=== PATIENT | male | born 1960 | race Caucasian/White ===

== ENCOUNTER 2024-05-13 17:16 | Emergency (ER) | payer BC, SELFPAY ==
[2024-05-13 17:18] VITALS: BP 171/75; PULSE 60; RESP 17; TEMP 36.9; O2SAT 97; BMI 29.6
--- NOTE | 2024-05-13 17:39 | ECG_ITS ---
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 Measurements Intervals [place] Rate: 62 P: 43 IN: 188 QRS: -12 QRSD: 113 T: 23 QT: 426 QTc: 433 Interpretive Statements SINUS RHYTHM POSSIBLE ANTERIOR MYOCARDIAL INFARCTION , OF INDETERMINATE AGE [30 ms Q WAVE IN V3/V4, OR R < 0.2 mV IN V4] INFERIOR MYOCARDIAL INFARCTION , OF INDETERMINATE AGE [40+ ms Q WAVE AND/OR ST/T ABNORMALITY IN II/aVF] No previous ECG available for comparison Electronically Signed On 05-14-2024 20:22:42 TRACK CAR OPERATOR by Eleni Amaral M.D. [id number]
--- NOTE | 2024-05-13 17:43 | ED_ITS ---
Documented by User: Naila Rios MD 05/14/24 05:47 HPI - Syncope 2 General: Chief Complaint: Syncope Stated Complaint: LOC Time Seen by Provider: 05/13/24 17:31 Source: patient and EMS Limitations: no limitations History of Present Illness: 63-year-old male who came here by EMS he was eating at [employer] tonight states that he had felt hot was gone take his code off and then his said that he passed out. She states that she laid him on the floor he is out for roughly 20 seconds he is now awake he states that he feels completely normal he denies any headache or chest pain denies any headache or chest pain before the event. Denies any vomiting Associated symptoms: Deny abdominal pain, chest pain, fever(s), headache(s) or nausea Related Data Allergies Allergy/AdvReac Type Severity Reaction Status Date / Time No Known Allergies Allergy Verified 05/13/24 17:22 Review of Systems 2 Const: Denies: fever(s), chills, body aches or change in appetite ENMT: Denies: throat pain or dental pain Card: Reports: syncope; Denies: chest pain Resp: Denies: dyspnea GI: Denies: abdominal pain, nausea, vomiting or diarrhea Musc: Denies: neck pain or back pain Skin/Breast: Denies: rash Neuro: Denies: headache(s) Physical Exam 2 Const: COMMON NORMALS: no acute distress, patient oriented x3 and healthy appearing HENMT: COMMON NORMALS: normocephalic and atraumatic HEAD & SCALP: n ormocephalic and atraumatic Neck/C-Spine: COMMON NORMALS: full ROM and supple Chest: COMMONS NORMALS: normal inspection of the chest Resp: COMMON NORMALS: normal respiratory effort, No retractions, No use of accessory muscles and clear to auscultation bilaterally AUSCULTATION: clear to auscultation bilaterally Cardio: COMMON NORMALS: regular rate, regular rhythm and No murmurs present (Cardio) RATE: regular rate RHYTHM: regular rhythm GI: COMMON NORMALS: Normal to inspection, nondistended, normoactive bowel sounds present, Soft to palpation, non-tender and no masses PALPATION: Yes Soft to palpation Extremity: COMMON NORMALS: normal to inspection and full ROM Neuro: COMMON NORMALS: patient oriented x3, moves all extremities and no focal motor deficits Psych: COMMON NORMALS: mental status grossly normal, Normal thought process present and cooperative THOUGHT PROCESS: Normal thought process present Skin: COMMON NORMALS: no rashes or lesions noted and no wounds GENERAL SKIN EXAM: no rashes or lesions noted Course 2 Vital Signs: Vital signs: Vital Signs Temperature 98.4 F 05/13/24 17:18 Pulse Rate 67 05/13/24 21:09 Respiratory Rate 18 05/13/24 21:09 Blood Pressure 144/72 05/13/24 21:09 Pulse Oximetry 95 05/13/24 21:09 Oxygen Delivery Me thod Room Air 05/13/24 21:08 MDM - Syncope Lab Data 05/13/24 18:08 05/13/24 18:08 Radiology Impressions Chest X-Ray 05/13/24 18:05 IMPRESSION: No radiographically apparent acute cardiopulmonary disease. Laboratory Results WBC 7.69 10^3/uL (3.29-11.43) 05/13/24 18:08 RBC 4.97 10^6/uL (3.85-5.65) 05/13/24 18:08 Hgb 14.10 g/dL (11.27-16.99) 05/13/24 18:08 Hct 42.9 % (37-53) 05/13/24 18:08 MCV 86.3 fl (82-101) 05/13/24 18:08 MCH 28.4 pg (27-33) 05/13/24 18:08 MCHC 32.9 g/dL (30-55) 05/13/24 18:08 RDW 13.3 % (12.1-15.1) 05/13/24 18:08 Plt Count 215 10^3/cmm (157-399) 05/13/24 18:08 MPV 9.8 fL (7.4-10.4) 05/13/24 18:08 Neut % (Auto) 68.9 % 05/13/24 18:08 Lymph % (Auto) 20.8 % 05/13/24 18:08 Rock % (Auto) 7.0 % 05/13/24 18:08 Eos % (Auto) 2.3 % 05/13/24 18:08 Baso % (Auto) 0.5 % 05/13/24 18:08 Neut # (Auto) 5.29 10^3/uL (1.8-7.7) 05/13/24 18:08 Lymph # (Auto) 1.6 10^3/uL (0.8-4.8) 05/13/24 18:08 Rock # (Auto) 0.5 10^3/uL (0.2-0.9) 05/13/24 18:08 Eos # (Auto) 0.2 10^3/uL (0.0-0.8) 05/13/24 18:08 Baso # (Auto) 0.0 10^3/uL (0.0-0.1) 05/13/24 18:08 Nucleated RBC % (auto) 0 % 05/13/24 18:08 Nucleated RBCs # 0.0 /100WBC 05/13/24 18:08 Sodium 140 mmol/L (136-145) 05/13/24 18:08 Potassium 4.2 mmol/L (3.5-5.1) 05/13/24 18:08 Chloride 101 mmol/L (98-107) 05/13/24 18:08 Carbon Dioxide 29 mmol/L (22-29) 05/13/24 18:08 Anion Gap 14.2 (5-19) 05/13/24 18:08 BUN 14 mg/dL (8-23) 05/13/24 18:08 Creatinine 1.1 mg/dL (0.7-1.2) 05/13/24 18:08 GFR Calculation 67.6 mL/min (90-130) L 05/13/24 18:08 Glucose 166 mg/dL (65-115) H 05/13/24 18:08 Calculated Osmolality 294 mOsm/kg (285-295) 05/13/24 18:08 Calcium 9.4 mg/dL (8.5-10.5) 05/13/24 18:08 Total Bilirubin 0.8 mg/dL (0.15-1.2) 05/13/24 18:08 AST 18 U/L (0-40) 05/13/24 18:08 ALT 20 U/L (0-41) 05/13/24 18:08 Alkaline Phosphatase 117 U/L (40-130) 05/13/24 18:08 Troponin T Baseline 7 ng/L (0-15) 05/13/24 18:08 Troponin T 120 Minute 6.57 ng/L (0-15) 05/13/24 20:23 Delta Troponin T -0.43 ABS# (0-10) L 05/13/24 20:23 Total Protein 6.8 g/dL (6.6-8.7) 05/13/24 18:08 Albumin 4.3 g/dL (3.5-5.2) 05/13/24 18:08 Globulin 2.5 g/dL (1.3-4.6) 05/13/24 18:08 Discharge Plan Discharge Patient Disposition: Home Clinical Impression: Syncope Condition: Stable Discharge Orders: Discharge ED (Routine); Ordered 05/13/24 Ordered By: Khai Kilgore Patient Instructions: Syncope (ED), Opioid Safety, Pain Management Activity Restrictions/Additional Instructions: Return for repeated episodes of syncope or passing out, development of chest pain, shortness of breath, fever, any other concerning symptoms. See your doctor next week. Coding Level of Care Code ED Traffic Operations Engineer for Chg Fwd Documented by User: Khai Kilgore DO 05/13/24 23:08 HPI - Syncope 2 General: Chief Complaint: Syncope Stated Complaint: LOC Time Seen by Provider: 05/13/24 17:31 Related Data Allergies Allergy/AdvReac Type Severity Reaction Status Date / Time No Known Allergies Allergy Verified 05/13/24 17:22 Course 2 Vital Signs: Vital signs: Vital Signs Temperature 98.4 F 05/13/24 17:18 Pulse Rate 67 05/13/24 21:09 Respiratory Rate 18 05/13/24 21:09 Blood Pressure 144/72 05/13/24 21:09 Pulse Oximetry 95 05/13/24 21:09 Oxygen Delivery Me thod Room Air 05/13/24 21:08 MDM - Syncope Medical Decision Making 63-year-old male checked out that she gentleman had a syncopal episode. No chest pain. He is asymptomatic currently. Initially he did not want troponins drawn, but family requested soon thereafter. CBC is normal. BMP is not remarkable. Chest x-ray is normal. His delta troponin is -0.4. He is asymptomatic. His EKG does not show any acute ST wave changes. He will be allowed discharge to follow-up as an outpatient Lab Data 05/13/24 18:08 05/13/24 18:08 Radiology Impressions Chest X-Ray 05/13/24 18:05 IMPRESSION: No radiographically apparent acute cardiopulmonary disease. Laboratory Results WBC 7.69 10^3/uL (3.29-11.43) 05/13/24 18:08 RBC 4.97 10^6/uL (3.85-5.65) 05/13/24 18:08 Hgb 14.10 g/dL (11.27-16.99) 05/13/24 18:08 Hct 42.9 % (37-53) 05/13/24 18:08 MCV 86.3 fl (82-101) 05/13/24 18:08 MCH 28.4 pg (27-33) 05/13/24 18:08 MCHC 32.9 g/dL (30-55) 05/13/24 18:08 RDW 13.3 % (12.1-15.1) 05/13/24 18:08 Plt Count 215 10^3/cmm (157-399) 05/13/24 18:08 MPV 9.8 fL (7.4-10.4) 05/13/24 18:08 Neut % (Auto) 68.9 % 05/13/24 18:08 Lymph % (Auto) 20.8 % 05/13/24 18:08 Rock % (Auto) 7.0 % 05/13/24 18:08 Eos % (Auto) 2.3 % 05/13/24 18:08 Baso % (Auto) 0.5 % 05/13/24 18:08 Neut # (Auto) 5.29 10^3/uL (1.8-7.7) 05/13/24 18:08 Lymph # (Auto) 1.6 10^3/uL (0.8-4.8) 05/13/24 18:08 Rock # (Auto) 0.5 10^3/uL (0.2-0.9) 05/13/24 18:08 Eos # (Auto) 0.2 10^3/uL (0.0-0.8) 05/13/24 18:08 Baso # (Auto) 0.0 10^3/uL (0.0-0.1) 05/13/24 18:08 Nucleated RBC % (auto) 0 % 05/13/24 18:08 Nucleated RBCs # 0.0 /100WBC 05/13/24 18:08 Sodium 140 mmol/L (136-145) 05/13/24 18:08 Potassium 4.2 mmol/L (3.5-5.1) 05/13/24 18:08 Chloride 101 mmol/L (98-107) 05/13/24 18:08 Carbon Dioxide 29 mmol/L (22-29) 05/13/24 18:08 Anion Gap 14.2 (5-19) 05/13/24 18:08 BUN 14 mg/dL (8-23) 05/13/24 18:08 Creatinine 1.1 mg/dL (0.7-1.2) 05/13/24 18:08 GFR Calculation 67.6 mL/min (90-130) L 05/13/24 18:08 Glucose 166 mg/dL (65-115) H 05/13/24 18:08 Calculated Osmolality 294 mOsm/kg (285-295) 05/13/24 18:08 Calcium 9.4 mg/dL (8.5-10.5) 05/13/24 18:08 Total Bilirubin 0.8 mg/dL (0.15-1.2) 05/13/24 18:08 AST 18 U/L (0-40) 05/13/24 18:08 ALT 20 U/L (0-41) 05/13/24 18:08 Alkaline Phosphatase 117 U/L (40-130) 05/13/24 18:08 Troponin T Baseline 7 ng/L (0-15) 05/13/24 18:08 Troponin T 120 Minute 6.57 ng/L (0-15) 05/13/24 20:23 Delta Troponin T -0.43 ABS# (0-10) L 05/13/24 20:23 Total Protein 6.8 g/dL (6.6-8.7) 05/13/24 18:08 Albumin 4.3 g/dL (3.5-5.2) 05/13/24 18:08 Globulin 2.5 g/dL (1.3-4.6) 05/13/24 18:08 All radiology interpretation(s) finalized by discharge Discharge Plan Discharge Patient Disposition: Home Clinical Impression: Syncope Condition: Stable Discharge Orders: Discharge ED (Routine); Ordered 05/13/24 Ordered By: Khai Kilgore Patient Instructions: Syncope (ED), Opioid Safety, Pain Management Activity Restrictions/Additional Instructions: Return for repeated episodes of syncope or passing out, development of chest pain, shortness of breath, fever, any other concerning symptoms. See your doctor next week. Coding Level of Care Code ED Traffic Operations Engineer for Nette Messer
--- NOTE | 2024-05-13 18:05 | XRR_ITS ---
PROCEDURE INFORMATION: Exam: XR Chest Exam date and time: 05/13/2024 6:16 PM Age: 63 years old Clinical indication: Other: Syncopal episode; Additional info: Syncope TECHNIQUE: Imaging protocol: Radiologic exam of the chest. Views: 1 view. COMPARISON: No relevant prior studies available. FINDINGS: Lungs: No pulmonary consolidation. Pleural spaces: No pneumothorax or pleural effusion. Heart/Mediastinum: Mild cardiomegaly. Bones/joints: Mild scattered spinal degenerative changes. Regional osseous structures are otherwise unremarkable. XR/XR chest 1V portable [id number] IMPRESSION: No radiographically apparent acute cardiopulmonary disease.
[2024-05-13 18:18] LABS: Basophils % 0.5 %; Eosinophils # 0.2 10^3/uL (0.0-0.8); Eosinophils % 2.3 %; Hematocrit 42.9 % (37-53); Lymphocytes # 1.6 10^3/uL (0.8-4.8); Lymphocytes % 20.8 %; Mean Corpuscular HGB Conc 32.9 g/dL (30-55); Mean Corpuscular Hemoglobin 28.4 pg (27-33); Mean Corpuscular Volume 86.3 fl (82-101); Mean Platelet Volume 9.8 fL (7.4-10.4); Monocytes # 0.5 10^3/uL (0.2-0.9); Neutrophils # 5.29 10^3/uL (1.8-7.7); Neutrophils % 68.9 %; Nucleated Red Blood Cells % 0 %; Platelet Count 215 10^3/cmm (157-399); Red Blood Count 4.97 10^6/uL (3.85-5.65); Red Cell Distribution Width 13.3 % (12.1-15.1); White Blood Count 7.69 10^3/uL (3.29-11.43)
[2024-05-13 18:24] VITALS: BP 148/82; PULSE 64; O2SAT 96
[2024-05-13 18:42] LABS: Alanine Aminotransferase 20 U/L (0-41); Albumin Level 4.3 g/dL (3.5-5.2); Alkaline Phosphatase 117 U/L (40-130); Anion Gap 14.2 (5-19); Aspartate Amino Transferase 18 U/L (0-40); Blood Urea Nitrogen 14 mg/dL (8-23); Calcium 9.4 mg/dL (8.5-10.5); Carbon Dioxide 29 mmol/L (22-29); Chloride 101 mmol/L (98-107); Creatinine Clr Calc Pharmacy 74.2976; Globulin 2.5 g/dL (1.3-4.6); Glomerular Filtration Rate 67.6 mL/min (90-130); Glucose 166 mg/dL (65-115); Osmolality Calculated 294 mOsm/kg (285-295); Potassium 4.2 mmol/L (3.5-5.1); Sodium 140 mmol/L (136-145); Total Bilirubin 0.8 mg/dL (0.15-1.2); Total Protein 6.8 g/dL (6.6-8.7)
[2024-05-13 18:59] LABS: Troponin(5th) Baseline 7 ng/L (0-15)
--- NOTE | 2024-05-13 20:26 | ECG_ITS ---
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 Measurements Intervals [place] Rate: 58 P: 44 [place]: 181 QRS: -11 QRSD: 131 T: 31 QT: 446 QTc: 440 Interpretive Statements SINUS BRADYCARDIA INTRAVENTRICULAR CONDUCTION DELAY [130+ ms QRS DURATION] INFERIOR MYOCARDIAL INFARCTION , OF INDETERMINATE AGE [40+ ms Q WAVE AND/OR ST/T ABNORMALITY IN II/aVF] Compared to ECG 05/13/2024 17:59:07 Intraventricular conduction delay now present Sinus rhythm no longer present Myocardial infarct finding still present Electronically Signed On 05-14-2024 20:35:07 SAND HAULER by Eleni Amaral M.D. [email or web address]
[2024-05-13 20:34] VITALS: BP 135/98; PULSE 60; O2SAT 96
[2024-05-13 20:50] LABS: Troponin 5 2HR 6.57 ng/L (0-15)
[2024-05-13 20:56] LABS: Troponin 5 2HR Delta -0.43 ABS# (0-10)
[2024-05-13 21:08] VITALS: BP 144/72; PULSE 67; RESP 18; O2SAT 95
[2024-05-13 21:09] VITALS: BP 144/72; PULSE 67; RESP 18; O2SAT 95
== END 2024-05-13 21:07 | disposition home or self-care (01) ==
PROVIDERS: Emergency Medicine; Emergency Provider Emergency Medicine
DX: R55 Syncope and collapse (principal)
CPT/HCPCS: 36415; 71045; 80053; 84484; 85025; 93005; 99285